=== PATIENT | female | born 1930 | race Caucasian/White ===

== ENCOUNTER 2020-07-30 07:51 | Observation (INO) | payer OTHER ==
[~2020-07-30] VITALS: Ht 167.6 cm; Wt 81.6 kg
[~2020-07-30 07:51] MED LIST: ALENDRONATE SOD70 MG PO; ASA81BEC PO; ATORVASTATIN CA10 MG PO; CYCLOBENZAPRINE5 MG PO; FIBER500 MG PO; IRBESARTAN300 MG PO; LINZESS72 MCG PO; MULTI VITAMIN1 EACH PO; OMEPRAZOLE 20 M20 M1 PO; TRAMADOL 50 MG50 MG PO; VITAMIN B-12500 MC5 PO; VITAMIN D31 ML PO
[2020-07-30 08:43] VITALS: BP 141/86
--- NOTE | 2020-07-30 09:12 | EKG ---
[address] [place] [address] ELECTROCARDIOGRAM REPORT Name: LEANN SUERO Room #: 150-4 [facility].#: [id number] Admission: 07/30/20 Attend Phys: Hakan Araya MD Discharge: Date of : 11/09/[birth year] Report #: [id number] [facility] Test Date: 2020-07-30 Test Time: 08:33:46 Pat Name: LEANN SUERO Department: Room: 150 4 Gender: F Supervisor Coremaker: KADEEM : 1930 Requested By: Kierra Varghese Order Number: [id number] MD: Carlos Lopes Measurements Intervals [place] Rate: 63 P: 14 [place]: 166 QRS: 14 QRSD: 92 T: 27 QT: 430 QTc: 441 Interpretive Statements Sinus rhythm Abnormal R-wave progression, early transition Compared to ECG 07/09/2002 22:10:29 No significant changes Electronically Signed On 07-30-2020 9:11:59 CDT by Carlos Lopes [email or web address] <ELECTRONICALLY SIGNED> By: Carlos Lopes MD, [facility] 07/30/20 0911 D: 06/832 2 Carlos Lopes MD, FACC /EPI
[2020-07-30 12:24] LABS: CLARITY CLOUDY; COLOR BROWN
[2020-07-30 13:48] LABS: BF NUCLEATED CELLS 8948 /mm3; BF RBC 17313 /mm3
[2020-07-30 14:23] LABS: BF MACROPHAGE 17 %; BF NEUTROPHILS 17 %
[2020-07-30 16:43] VITALS: BP 107/67
--- NOTE | 2020-07-30 17:01 | NUR ---
Pt transferred to unit from PACU. Pt a&ox4. Pain controlled with prn pain meds. Dressing c/d/i. Able to void in bedside commode x1 assist. Family at bedside. Call light within reach. Fall precautions in place. Will continue to monitor.
[2020-07-30 19:45] VITALS: BP 117/68
[2020-07-31 04:30] VITALS: BP 105/65
--- NOTE | 2020-07-31 05:49 | NUR ---
PT'S FAMILY IN THE ROOM VISITING DURING SHIFT CHANGE.PT C/O PAIN TO HER HIP,MANAGED WITH MED.PT UP WITH ASSIST/GB TO THE BSC,VOIDING WELL.WBAT.PT LOOKING FORWARD TO BE DC'D LATER TODAY.CALL LIGHT WITHIN REACH.
[2020-07-31 08:24] VITALS: BP 112/68
--- NOTE | 2020-07-31 09:28 | O ---
[address] [address] OPERATIVE REPORT Name: LEANN SUERO Room #: 437-P [facility] M..#: [id number] Admission: 07/30/20 Attend Phys: Hakan Araya MD Discharge: Date of : 11/09/30 Report #: [id number] THIS REPORT FOR: cc: Theo Sanchez MD, Thomas P. MD McCabe,Hakan Patel MD ~ DOC #: [id number] Hakan Araya MD DATE OF SERVICE: 07/30/2020 SERVICE: Orthopedics. FACILITY: [place]. SURGEON: Hakan Araya MD STREET CAR MECHANIC: Genesis Nix NP INDICATIONS FOR STREET CAR MECHANIC: Extremity positioning for arthroscopy. PREOPERATIVE DIAGNOSES: 1. Right hip pain. 2. Right hip iliopsoas tendonitis. 3. Right hip trochanteric bursitis. 4. Status post right total hip arthroplasty. POSTOPERATIVE DIAGNOSES: 1. Right hip pain. 2. Right hip iliopsoas tendonitis. 3. Right hip trochanteric bursitis. 4. Status post right total hip arthroplasty. PROCEDURES: 1. Right hip arthroscopy with extensive debridement. 2. Right hip arthroscopic iliopsoas tendon lengthening. 3. Right hip arthroscopic trochanteric bursectomy. COMPLICATIONS: None. DRAINS: None. SPECIMENS: Fluid culture x 2, fluid for cell count with differential, synovial tissue for permanent path. FINDINGS: 1. Right hip effusion with serous synovial fluid without signs of deep space [address] [place] [address] OPERATIVE REPORT Name: LEANN SUERO [id number] Admission: 07/30/20 Attend Phys: Hakan Araya MD Discharge: Date of : 11/09/30 Report #: [id number] infection. 2. Partial fraying on the deep aspect of the iliopsoas tendon adjacent to a loose ossicle with a sharp edge at the acetabular rim. 3. Well fixed components without evidence of loosening. 4. Successful trochanteric bursectomy. INDICATIONS FOR PROCEDURE: The patient is an 89-year-old female who is few years status post right total hip arthroplasty. She has had persistent anterior groin pain since having the surgery, this was progressing and severely affecting activities of daily living. She had progressed from ambulatory without an assistive device to a cane and was moving towards a walker. She felt very concerned that she will be unable to ambulate for any distant as a result of this worsening condition. She had multifocal pain, but was worked up for a component of that being iliopsoas tendinitis. She had a diagnostic injection in the iliopsoas and bursa and had temporary relief rather injections were not providing sufficient relief other than some mild temporary relief with a trochanteric bursa injection. She was interested in definitive treatment. I had a conversation with her and her related to the associated risks. I also discussed the case directly with her primary care provider. She was very interested in proceeding with surgical treatment with attempt to alleviate some of her pain recognizing that arthroscopic surgery was not expected to provide complete pain relief. Risks, benefits, alternatives and indications for surgery discussed with her in detail. Risks include but not limited to pain, bleeding, infection, injuring nerves or blood vessels, persistent pain despite surgical intervention, failure of the procedure, need for further surgery as well as complications related to anesthesia up to and including . Despite the risks, she wished to proceed. DESCRIPTION OF PROCEDURE: After right lower extremity was correctly identified in the preoperative holding area as the operative extremity, the patient was taken to the operating room where general anesthesia was induced without complication. She was padded appropriately. Prophylactic antibiotics were administered at appropriate time. Right hip was prepped and draped in standard sterile fashion. Timeout procedure was performed. Using C-arm localization, 2 portals were established in a standard fashion. Anterolateral portal was established followed by an anteromedial portal and the triangulation technique allowed access to the anterior aspect of the neck of the femoral component. There was a capsular space presents with the scope in the hip without running any fluid. There was an obvious effusions, so I used a 14-gauge spinal needle under direct arthroscopic visualization to aspirate the effusion. This fluid was sent for culture x 2 as well as cell count with differential. The shaver was then used as well as the cautery to open a small window in the anterior capsule. There was significant scarring and fibrosis around the base of the femoral head component. This was opened up and direct [address] [address] OPERATIVE REPORT Name: LEANN SUERO Priyanka Room #: 437-P [facility] Adam M.RMargarita#: [id number] Admission: 07/30/20 Attend Phys: Hakan Araya MD Discharge: Date of : 11/09/[birth year] Report #: [id number] visualization was able to be achieved. There was some synovitis here. This was biopsied with the arthroscopic biter and sent for permanent pathology specimen. The anterior capsular tissue was then resected working anteriorly and medially until the acetabular component could be visualized including the poly liner. The articulation was normal. There was no evidence of synovial tissue or fibrosis trapped between the articulation. The medial aspect of the cup was not visible due to a small piece of bone that was present. This was actually sharp on visualization and this corresponded directly adjacent to the iliopsoas tendon, which was visualized once the capsular tissue was resected in the area. The cautery was used to perform an iliopsoas tendon lengthening in the standard fashion while not violating the muscle tissue itself. The bony ossicle was then carefully assessed and this was actually found to be loose on palpation. This was then removed with the arthroscopic grasper and discarded. Final debridement was then completed in this vicinity and then the diagnostic procedure as well as debridement was carried across the front of the hip and then working down around the neck and trunnion region, ensuring that there was no tissue wrapped around the femoral head constricting rotational movement. After this was completed, the hip was abducted and the 2 portals that had been previously established were able to be utilized for trochanteric bursectomy. Using C-arm guidance, the scope and the cautery were redirected into the peritrochanteric space and then a bursectomy was performed with the shaver and the cautery. After this was complete, the arthroscopic effusion was drained. Instruments were removed. Portal sites were closed. Sterile dressing was applied. The patient was awakened from anesthesia and taken to recovery room in stable condition. No complications. All counts were recorded as correct. Hakan Araya MD MPM/ALL <ELECTRONICALLY SIGNED> By: Hakan Araya MD 07/31/20 0928 00 24 Hakan Araya MD /joe
--- NOTE | 2020-07-31 10:20 | NUR ---
ASSUMED PT CARE AT 7:00 AM. PT. ALERT AND ORIENTED X 4. PAIN LEVEL WAS A 2. PT. CONTINUES TO USE COLD PACK FOR PAIN RELIEF. NO ANXIETY TODAY. PT TOLERATED GETTING OOB WITH ASSIST x1 WITH GB. VSS AND AFEBRILE. BED IN LOW POSITION. FALL PRECAUTIONS IN PLACE. DRSG TO RIGHT HIP C/D/I. NO BM NOTED. CALL LIGHT WITHIN REACH. WILL CONTINUE TO MONITOR UNTIL DISCHARGE TODAY.
[2020-07-31 11:01] VITALS: BP 112/68
--- NOTE | 2020-07-31 11:20 | NUR ---
ASSESSMENT: CM REVIEWED CHART AND MET WITH PATIENT AT THE BEDSIDE. PT APPEARS TO BE ALERT AND ORIENTED X4. PT IS S/P RIGHT HIP TROCHANETERIC BURSECTOMY. PT REPORTS LIVING IN A CONDO WITH HER . SHE STATES SHE HAS ONE STEP TO ENTER AND NO STEPS SHE HAS TO USE ONCE INSIDE. PT REPORTS HAVING A CANE AND A WALKER AT HOME. SHE STATES HAVING A FWW WELL A ROLLATER WALKER. PT REPORTS HAVING A GRAB BAR AND SHOWER CHAIR IF NEEDED. PT REPORTS HAVING A SON WHO IS SUPPORTIVE. PT IS REQUESTING HH AT DISCHARGE AND HAS NO PREFERENCE OF HH AGENCY. CM NOTIFIED LIASON WITH [facility] AND SHE STATES SHE WILL SEND REFERRAL AND SEE PATIENT. PLANS ARE FOR LIKELY DISCHARGE TODAY WITH HH. CM WILL CONTINUE TO FOLLOW TO ASSIST NEEDED.
[2020-07-31 13:15] VITALS: BP 112/68
--- NOTE | 2020-08-01 18:06 | PATH ---
[facility] [address] [place] [address] PATHOLOGY RPT PROCEDURE Name: FELA SUERO Priyanka Room #: 437-P LORIE Campos#: [id number] Admission: 07/30/20 Date of : [birth year]/09/30 Discharge: 07/31/20 Report #: [id number] Path Case #: [id number] [facility] Accession Number: [id number] . 01 Material submitted: . hip - RIGHT TOTAL HIP SYNOVIUM. Modifiers: right . 01 Clinical history: . ILIOPSOAS BURSITIS OF RIGHT HIP ARTHROSCOPY HIP . 02 Diagnosis: Synovium, right total hip synovium, biopsy: - Reactive synovial hyperplasia associated with mild chronic inflammation as well as calcifications. - No increase in neutrophils within the inflammatory infiltrate. . (IUV:mml; 08/01/2020) QLM 08/01/2020 1412 Local . 02 Electronically signed: . Maureen Donato MD, Pathologist NPI- [id number] . 01 Gross description: . Received in formalin labeled "Deeter, Fela, right total hip synovium" are multiple torres-white soft tissue fragments measuring in aggregate 1.9 x 0.9 x 0.3 cm. The specimen is submitted entirely in A1. ([facility]; 07/31/2020) GZA/GZA 07/31/2020 1645 Local . 02 Pathologist provided ICD-10: M65.9 . 02 CPT . 246501 Specimen Comment: A courtesy copy of this report has been sent to [phone], [phone] Specimen Comment: [id number] Specimen Comment: Report sent to / DR HEIN Performed at: [address], [place] [id number] MD Rashid Pérez MD Phone: [phone] Performed at: [address] [id number] MD Maureen Donato MD Phone: [phone]
== END 2020-07-31 14:36 | disposition home health service (06) ==
LOC: OR 07:51 → TBA 07:51 → OR 12:11 → 4S 15:17 → OR 17:02 → 4S 07-31 14:36
PROVIDERS: ADMIT Orthopaedic Surgery Sports Medicine; ATTEND Orthopaedic Surgery Sports Medicine
DX: M76.11 Psoas tendinitis, right hip (principal); M70.61 Trochanteric bursitis, right hip; I10 Essential (primary) hypertension; E78.5 Hyperlipidemia, unspecified; K21.9 Gastro-esophageal reflux disease without esophagitis; G47.30 Sleep apnea, unspecified; Z86.73 Personal history of transient ischemic attack (TIA), and cerebral infarction without residual deficits; Z79.899 Other long term (current) drug therapy; Z96.651 Presence of right artificial knee joint; Z96.641 Presence of right artificial hip joint
CPT/HCPCS: 50010; 50101; 50386; 51320; 51538; 52001; 52282; 52304; 52313; 56524; 56527; 57092; 57103; 58558; 58561; 58608; 58634; 62110; 62900; 70005